=== PATIENT | male | born 1940 | race Caucasian/White ===

== ENCOUNTER 2018-06-28 11:04 | Inpatient (IN) | payer MEDICARE, OTHER ==
[~2018-06-28] VITALS: Ht 170.2 cm; Wt 85.7 kg
[~2018-06-28 11:04] MED LIST: ALPRAZOLAM; ARIXTRA; ASPIR 8181 MG PO; CIPROFLOXACIN500 M1 PO; CLARITIN10 MG PO; ERYTHROMYCIN E3.5 G3 OPHTHALMIC; FISHOIL; FLOMAX0.4 MG PO; IMDUR 30 MG TAB30 M1 PO; LIPITOR10 MG PO; METAMUCIL PAC1 UDPK1 PO; MOM PO; MULTIVITAMINS; NAPROSYN500 MG PO; NITROGLYCERIN0.4 MG SUBLING; NORCO 5-325 TA1 EACH PO; OMEPRAZOLE40 MG PO; PAROXETINE HCL20 MG PO; PAXIL PO; PAXIL10 MG PO; PROSCAR 5MG TABL5 MG PO; ROXICODONE5 M1 PO; TYLENOL EXTRA500 MG PO; ZOFRAN4 MG PO; ZYRTEC PO
[2018-06-28 11:10] VITALS: BP 128/71
[2018-06-28 11:30] LABS: URINE BILIRUBIN NEGATIVE (Negative); URINE BLOOD NEGATIVE (Negative); URINE CLARITY CLEAR; URINE COLOR YELLOW; URINE GLUCOSE-RANDOM NEGATIVE (Negative); URINE KETONES NEGATIVE (Negative); URINE LEUKOCYTES-REFLEX NEGATIVE (Negative); URINE NITRITE-REFLEX NEGATIVE (Negative); URINE PROTEIN NEGATIVE (Negative); URINE UROBILINOGEN 0.2 E.U./dl (0.2-1.0)
[2018-06-28 11:32] LABS: ABSOLUTE EOSINOPHILS 0.1 thou/uL (0.0-0.7); ABSOLUTE LYMPHOCYTES 1.4 thou/uL (0.8-5.3); ABSOLUTE MONOCYTES 0.5 thou/uL (0.0-1.2); ABSOLUTE NEUTROPHILS 3.4 thou/uL (1.6-8.1); BASOPHILS 0.5 %; EOSINOPHILS 2.1 %; HEMATOCRIT 44.9 % (42.0-52.0); HEMOGLOBIN 15.1 gm/dL (14.0-18.0); LYMPHOCYTES 26.1 %; MCH 29.2 pg (26.0-34.0); MCHC 33.7 g/dL (28.0-37.0); MCV 86.6 fL (80.0-100.0); MPV 7.9 fl. (7.2-11.1); NUCLEATED RBCS 0 /100WBC; PLATELET COUNT* 230 thou/uL (150-400); POLYS 62.3 %; RBC 5.18 mil/uL (4.50-6.00); RDW-CV 13.5 % (10.5-14.5); WBC 5.5 thou/uL (4.0-11.0)
[2018-06-28 11:40] LABS: APTT 33.1 Seconds (25.0-31.3); PROTIME 10.2 Seconds (9.20-11.50)
[2018-06-28 11:56] LABS: ALBUMIN 3.7 g/dL (3.4-5.0); ALKALINE PHOSPHATASE 95 U/L (46-116); ANION GAP 2 mmol/L (7-16); BUN 13 mg/dL (7-18); CALCIUM 8.7 mg/dL (8.5-10.1); CHLORIDE 101 mmol/L (98-107); CK-MB MASS 2.3 ng/mL (<0.5-3.6); CO2 33 mmol/L (21-32); CREATININE 0.8 mg/dL (0.6-1.3); GLUCOSE 101 mg/dL (70-99); NT-PRO BRAIN NAT PEPTIDE 126 pg/mL (<300); POTASSIUM 4.2 mmol/L (3.5-5.1); SGOT 24 U/L (15-37); SGPT 13 U/L (30-65); SODIUM 136 mmol/L (136-145); TOTAL BILIRUBIN 0.3 mg/dL (<0.1-1.0); TOTAL PROTEIN 7.4 g/dL (6.4-8.2); TROPONIN-I LEVEL <0.06 ng/mL (<0.06)
[2018-06-28 14:00] VITALS: BP 123/77; BP 132/78
--- NOTE | 2018-06-28 17:03 | EKG ---
[place] [address] ELECTROCARDIOGRAM REPORT Name: DEEPAK EVERETT Room: [address] ADM IN M.R.#: [id number] Admission: 06/28/18 Attend Phys: Jonathan Chau Discharge: Date of : 42 Report #: [id number] THIS REPORT FOR: //name// [facility] ED Test Date: 2018-06-28 Test Time: 11:47:59 Pat Name: DEEPAK EVERETT Department: Room: 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: [place] : 1940 Requested By: Carlitos Salazar Order Number: [id number] MD: Frandy Ramirez Measurements Intervals [place] Rate: 50 P: 22 [place]: 174 QRS: -13 QRSD: 95 T: 0 QT: 419 QTc: 382 Interpretive Statements Sinus bradycardia Abnormal R-wave progression, early transition Borderline ST elevation, lateral leads Baseline wander in lead(s) V1 Compared to ECG 10/18/2016 16:09:59 rate slowed Electronically Signed On 06-28-2018 17:03:06 CDT by Frandy Ramirez [email or web address] <ELECTRONICALLY SIGNED> By: Frandy Ramirez MD, FACC 06/28/18 1703 1147 1147 Frandy Ramirez MD, [facility] /EPI
--- NOTE | 2018-06-28 19:04 | NUR ---
VSS, ASSUMED CARE OF PT FROM ER, ASSESSMENT PERFORMED AND CAHRTED, FALL PRECAUTIONS INPLACE AND CALL LIGHT IN REACH, PT DENIES ANY PAIN AND IS A&O4 AND UP AD HEATHER AND IS TRACING SB ON THE MONITOR, PT GOAL IS TO COMPLETE MRI, WILL FOLLOW WITH PLAN OF CARE AND HOURLY ROUNDS.
[2018-06-28 19:30] VITALS: BP 106/61; BP 121/70
[2018-06-29] VITALS: BP 109/72
--- NOTE | 2018-06-29 03:53 | NUR ---
RECEIVED REPORT AND ASSUMED CARE AT 1900. VSS. CARDIAC MONITORING IN PLACE. PT DENIES ANY COMPLAINTS OF PAIN. ASSESSMENT COMPLETED CHARTED. DISCUSSED PLAN OF CARE WITH PT, VERBALIZED UNDERSTANDING. PT UP AD HEATHER IN ROOM, ON RA. BED LOCKED IN LOWEST POSITION, CALL LIGHT WIHTIN REACH. MEDICATION ADMIN PER EMAR. WILL CONTINUE TO MONITOR
[2018-06-29 04:00] VITALS: BP 121/68
[2018-06-29 06:54] LABS: CHOLESTEROL 171 mg/dL (<200); HDL CHOLESTEROL 70 mg/dL (>40); LDL CHOLESTEROL 85 mg/dL (<100); TC:HDL 2.4 Ratio (Not establshd); TRIGLYCERIDE 81 mg/dL (<150); VLDL 16 mg/dL (<40)
[2018-06-29 06:55] LABS: SERUM ASSESSMENT Clear
[2018-06-29 08:02] VITALS: BP 110/65
--- NOTE | 2018-06-29 09:30 | NUR ---
ASSUMED CARE OF PT THIS AM AROUND 0715- OPHTHALMIC TECHNICIAN IN PLACE ORDERED, TRACING SB- UPON ASSESSMENT PT NOTED TO BE RESTING IN BED, EYES OPENED- PT A&O X4- CONTINENT OF BOWEL AND BLADDER- UP AD-HEATHER IN ROOM, STEADY GAIT NOTED- LCTA, RESP EVEN AND UN-LABORED- VSS, O2 SAT 95% ON RA- ABDOMEN SOFT/ROUND/NON-TENDER, BS X4 QUADS- LAST BM REPORTED 06/28/18- IV NOTED TO LEFT AC INTACT AND SL- GOOD PO INTAKE NOTED THIS AM WITH BREAKFAST-CARDIOLOGY HERE TO ASSESS AND SIGNED OFF THIS AM- PT DENIES ANY C/O PAIN/DISCOMFORT AT THIS TIME- CALL LIGHT AND PERSONAL BELONGINGS WITH IN REACH- HOURLY ROUNDS IN PLACE R/T SAFETY/NEEDS- ALL NEEDS MET AT THIS TIME-WCTM
[2018-06-29 10:13] VITALS: BP 110/65
[2018-06-29 12:14] VITALS: BP 110/60
[2018-06-29] MEDS ORDERED: LAMICTAL 25 MG25 M1 PO (12:46)
--- NOTE | 2018-06-29 14:55 | NUR ---
ORDERS RECIEVED PER FOR OKAY TO D/C IF OKAY WITH NEUROLOGY- NOTIFIED AND STATES THAT HE IS WAITING ON EEG RESULTS AND WILL POSS PRESCIBED LAMICTAL- RESULTS NOTED PER WITH LAMICTAL PRESCRIBED AND GIVEN THIS SHIFT ORDERED- LAMICAL SCRIPR CALLED IN TO PT PHARMACY PRIOR TO D/C- F/U WITH NEUROLOGY COMMUNICATED AND IF MORE SPEELS TO GET EARLIER WITH VERBAL UNDERSTANDING PER PT AND - WRITTEN EDUCATION PROVIDED AT TIME OF D/C- D/C TEACHING/EDUCATION GIVEN TO PT PRIOR TO D/C WITH ALL QUESTIONS AND CONCERNS ADDRESSED PRIOR TO D/C- IV TO LEFT AC D/C'D ALONG WITH HIM ANALYST PRIOR TO D/C- BELONGINGS PACKED AND ACCOUNTED FOR PER PT AND PRIOR TO D/C- PT CURRENLTY IN ROOM GETTING READY FOR D/C- ALL NEEDS MET AT THIS TIME-WCTM
--- NOTE | 2018-06-30 13:12 | CON ---
[address] [address] CONSULTATION Name: DEEPAK EVERETT Room: [address] IN .R.#: [id number] Admission: 06/28/18 Attend Phys: Jonathan Chau Discharge: 06/29/18 Date of : 42 Report #: [id number] THIS REPORT FOR: //name// CC: Lima De La Cruz DO DATE OF SERVICE: 06/28/2018 HISTORY OF PRESENT ILLNESS: The patient is a 77-year-old white male who I was asked to see in the hospital today after he was noted to be bradycardic. The patient has no previous history of heart disease. He does state that for years, he has been told he has a slow heart rate in the 50s. He actually saw my partner, Dr. Ivey back in 12/2016. He had some atypical chest pain at that time. He underwent a cardiac workup that included a stress echocardiogram in 10/2016. At that time, he got a target heart rate of 127. He did have ST segment depression; however, there was no evidence of ischemia on echo. 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 The patient apparently was at work yesterday and apparently became confused. He went home last night and could not recall what he had done during the day. This morning, his called his doctor's office. They were told to come to the Emergency Room for further evaluation and treatment. He apparently did not have any slurred speech or blurred vision. He did have a bruise under his eye, could not recall how he got the bruise. He denied any chest pain, shortness of breath, lightheadedness or syncope. PAST MEDICAL HISTORY: Otherwise significant for cholecystectomy, cataract extraction, prostatism and hyperlipidemia. He has a skin cancer removed, macular degeneration. MEDICATION: His only medication includes hydrocodone for pain. He is no longer on Lipitor nor Proscar. ALLERGIES: He has no drug allergies. FAMILY HISTORY: Negative for heart disease. SOCIAL HISTORY: He is . He and his live in [place]. 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 Quit smoking 10 years ago. Two beers a day. REVIEW OF SYSTEMS: No history of stroke, asthma. He has had a peptic ulcer. No kidney disease. He had a skin cancer removed in the past. No psychiatric illness. PHYSICAL EXAMINATION: GENERAL: Revealed an elderly white male [place] [address] CONSULTATION Name: DEEPAK EVERETT Jonathan Room: [address]#: [id number] Admission: 06/28/18 Attend Phys: Jonathan Chau Discharge: 06/29/18 Date of : 42 Report #: [id number] VITAL SIGNS: Blood pressure is 120/70, pulse 50. He is afebrile. HEENT: He is anicteric. Conjunctivae pink. Mucous members moist. NECK: Veins nondistended. No carotid bruits. Neck supple. CHEST: Clear to auscultation. CARDIAC: Regular, bradycardia. ABDOMEN: Soft. EXTREMITIES: No edema. Posterior tibial pulse 2+ bilaterally. SKIN: Warm, dry. NEUROLOGIC: Nonfocal. ECG shows sinus bradycardia without ST or T-wave change. His workup in the Emergency Room: He had a CT scan of the head today with and without contrast that showed cystic changes that are unchanged, possible congenital, no acute abnormality. Chest x-ray showed normal heart size, clear lung banks. LABORATORY DATA: Sodium 136, creatinine 0.8. Liver function studies were normal. White blood cell count 5.5, hemoglobin 15.1. IMPRESSION AND RECOMMENDATIONS: 1. Sinus bradycardia. I would check thyroid function studies. I would not recommend pacemaker at this time. 2. Confusion. The patient will be evaluated by Neurology. 3. Previous tobacco abuse. <ELECTRONICALLY SIGNED> By: Frandy Ramirez MD, FACC 06/30/18 1312 1609 [id number] Ramirez MD, FACC /nt
--- NOTE | 2018-06-30 19:14 | EEG ---
[address] [address] EEG STUDY REPORT Name: MARGUERITEDEEPAK Jonathan Room: [address] IN M.R.#: [id number] Admission: 06/28/18 Attend Phys: Jonathan Chau Discharge: 06/29/18 Date of : 42 Report #: [id number] THIS REPORT FOR: //name// CC: Lima De La Cruz This patient is having recurrent episodes of amnesia. EEG is being done to evaluate the possibility of seizure. The patient's EEG on the right side demonstrated a background activity of about 10 Hz and 30 microvolt. When the patient is awake, the asymmetry is not very prominent. The patient goes to sleep and the asymmetry becomes prominent and the patient has bilateral slowing. No spike and slow wave activity was noticed on the left side, but EEG does demonstrate what appeared to be unstable activity some time. Photic stimulation is unremarkable. IMPRESSION: This is a severely abnormal EEG because it is asymmetrical. The activity also appeared to be unstable, but no active spike and slow wave activity was noticed. Thank you very much for this referral. <ELECTRONICALLY SIGNED> By: Salas Leahy MD 06/30/18 1914 1548 1614Pcatherine Leahy MD /nt
--- NOTE | 2018-06-30 19:14 | CON ---
[address] [address] CONSULTATION Name: DEEPAK EVERETT Room: [address] IN M.R.#: [id number] Admission: 06/28/18 Attend Phys: Jonathan Chau Discharge: 06/29/18 Date of : 42 Report #: [id number] THIS REPORT FOR: //name// CC: Lima Gonzaleze Emyjadaallan DATE OF SERVICE: 06/28/2018 HISTORY OF PRESENT ILLNESS: This is a 77-year-old male patient who was evaluated by me for an episode, which he had yesterday. He had an episode where he does not remember about 2-3 hours of that time. He was still able to talk. His speech was intact. It came spontaneously without any trauma. It resolved by itself. He had some bruise under his left eye. He does not know how he noticed that. He told me this was his first episode, but the family later on told me that he had similar episode before. He was not classically repeating things like people with transient global amnesia does, now he feels back to his baseline. He does mention that he is having trouble with short-term memory that is going on for a few years and is gradually becoming worse. REVIEW OF SYSTEMS: A 14-point review of system was carried out in this patient. He does drink a couple of alcoholic drinks a day. He does see Dr. Ivey for heart problems. He has a history of rib fracture. He has a history of chest pain. He has a history of conjunctivitis. There is no history of any seizures in this patient. He had a hysterectomy, emphysema, ulcer, GERD, macular degeneration, LASIK surgery, bilateral cataracts, crushed vertebra, enlarged prostate. He is not complaining of any active chest pain, eye symptoms, ENT symptoms, GI, , constitutional, dermatological, hematological, psychiatric, throat, allergic symptom. PAST MEDICAL HISTORY: Negative for any stroke. FAMILY HISTORY: Negative for early age stroke. SOCIAL HISTORY: He drinks 2 or 3 alcoholic drinks a day. It is usually beer. PHYSICAL EXAMINATION: Indicate the patient is alert, responsive, able to follow simple and complex commands. His speech, concentration, fund of knowledge and memory is at his baseline. His memory is diminished. His cranial nerve examination 2-12 looks unremarkable. He has symmetrical strength, sensation, reflexes and tone in all 4 extremities. There is no cerebellar sign. I could not look at the patient's fundus. He is a well-developed individual who does not have any dysmorphic features of eyes, ears and face. His vision and hearing looks adequate. His pulses are palpable. He has no edema, cyanosis or jaundice. Cardiac examination is unremarkable. In fact, [place] [address] CONSULTATION Name: MARGUERITEDEEPAK Jonathan Room: [address]#: [id number] Admission: 06/28/18 Attend Phys: Jonathan Chau Discharge: 06/29/18 Date of : 42 Report #: [id number] Cardiology. Scattered rhonchi is present on both sides, but no respiratory difficulty is present. Blood pressure is 132/78, respirations 16, pulse is 52, temperature is 98.1. LABORATORY DATA: His white count is 5.5 and his creatinine is 8.8. He did have a CT scan of the head and he is going for an MRI of the brain. IMPRESSION: The patient's history is suggestive, but not typical for transient global amnesia. He also may have some minimal cognitive impairment or early dementia. He does drink some alcohol and that may complicate the situation, although he drinks only in moderation. RECOMMENDATIONS: 1. MRI. 2. MRA. 3. Carotid Doppler. 4. TSH, vitamin B12. 5. Thiamine. 6. Await the results of this testing and then decide about the further management. Thank you very much for this referral. If you have any question, please feel free to contact me. <ELECTRONICALLY SIGNED> By: Salas Leahy MD 06/30/18 1914 1618 0445Salas Leahy MD /nt
== END 2018-06-29 15:09 | disposition home or self-care (01) | DRG 71 ==
LOC: M.ERS 11:04 → M.2W 12:06 → M.TBA-ER 12:06 → M.2W 14:11
PROVIDERS: Family Medicine; Internal Medicine Cardiovascular Disease; ADMIT Internal Medicine
DX: G45.4 Transient global amnesia (principal); G93.49 Other encephalopathy; R00.1 Bradycardia, unspecified; K21.9 Gastro-esophageal reflux disease without esophagitis; E78.5 Hyperlipidemia, unspecified; H35.30 Unspecified macular degeneration; J43.9 Emphysema, unspecified; Z98.42 Cataract extraction status, left eye; Z98.41 Cataract extraction status, right eye; Z90.49 Acquired absence of other specified parts of digestive tract; Z98.52 Vasectomy status; Z91.048 Other nonmedicinal substance allergy status; Z87.891 Personal history of nicotine dependence; Z79.82 Long term (current) use of aspirin; Z79.899 Other long term (current) drug therapy

== ENCOUNTER 2020-08-22 18:01 | Emergency (ER) | payer MEDICARE, OTHER ==
[~2020-08-22] VITALS: Ht 170.2 cm; Wt 90.7 kg
[~2020-08-22 18:01] MED LIST changes: +FLEXERIL PO; +LAMICTAL 25 MG25 M1 PO; +MEDROLDOSEPACK PO; +TRAMADOL 50 MG50 MG PO; +TUMERIC; +VENTOLIN HFA 1818 GM INH; +VITAMIN D1000 UNI1 PO; +ZOFRAN ODT4 MG PO; +ZYRTEC10 M5 PO
[2020-08-22 19:55] LABS: ABSOLUTE EOSINOPHILS 0.1 thou/uL (0.0-0.7); ABSOLUTE LYMPHOCYTES 1.6 thou/uL (0.8-5.3); ABSOLUTE MONOCYTES 0.7 thou/uL (0.0-1.2); ABSOLUTE NEUTROPHILS 4.9 thou/uL (1.6-8.1); BASOPHILS 0.5 %; EOSINOPHILS 1.5 %; HEMATOCRIT 41.1 % (42.0-52.0); HEMOGLOBIN 13.9 gm/dL (14.0-18.0); LYMPHOCYTES 21.6 %; MCH 28.9 pg (26.0-34.0); MCHC 33.8 g/dL (28.0-37.0); MCV 85.3 fL (80.0-100.0); MONOCYTES 9.7 %; MPV 7.9 fl. (7.2-11.1); NUCLEATED RBCS 0 /100WBC; PLATELET COUNT* 207 thou/uL (150-400); POLYS 66.7 %; RBC 4.81 mil/uL (4.50-6.00); WBC 7.4 thou/uL (4.0-11.0)
[2020-08-22 20:02] LABS: CALCIUM 8.2 mg/dL (8.5-10.1); POTASSIUM 3.9 mmol/L (3.5-5.1)
[2020-08-22 20:04] LABS: PROTIME 10.8 Seconds (9.20-11.50)
[2020-08-22 20:07] LABS: ALBUMIN 3.6 g/dL (3.4-5.0); TOTAL BILIRUBIN 0.5 mg/dL (<0.1-1.0); TOTAL PROTEIN 6.8 g/dL (6.4-8.2)
[2020-08-22] MEDS ORDERED: HYDROCODON-ACE1 EAC7 PO (21:12)
[2020-08-22 21:26] VITALS: BP 180/78
--- NOTE | 2020-08-23 09:07 | EKG ---
[place] [address] ELECTROCARDIOGRAM REPORT Name: DEEPAK EVERETT Room: [facility]#: [id number] Admission: 08/22/20 Attend Phys: Discharge: 08/22/20 Date of : 42 Date of Service: 08/22/201948 Report #: [id number] THIS REPORT FOR: //name// 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1940 Requested By: Toyin Guo Order Number: [id number] MD: Frandy Ramirez Measurements Intervals [place] Rate: 51 P: 25 [place]: 175 QRS: -16 QRSD: 99 T: -3 QT: 391 QTc: 361 Interpretive Statements Sinus bradycardia Borderline left axis deviation Abnormal R-wave progression, early transition Borderline T abnormalities, inferior leads Compared to ECG 10/23/2018 19:05:13 No significant changes Electronically Signed On 08-23-2020 9:07:22 WIRE COILER MACHINE OPERATOR by Frandy Ramirez [email or web address] <ELECTRONICALLY SIGNED> By: Frandy Ramirez MD, FACC 08/23/2007 48 48 Frandy Ramirez MD, [facility] /EPI
== END 2020-08-22 21:27 | disposition home or self-care (01) ==
LOC: M.ERS 18:01
PROVIDERS: Emergency Medicine
DX: S22.000A Wedge compression fracture of unspecified thoracic vertebra, initial encounter for closed fracture (principal); K21.9 Gastro-esophageal reflux disease without esophagitis; M25.552 Pain in left hip; R10.32 Left lower quadrant pain; Z96.652 Presence of left artificial knee joint; Z88.8 Allergy status to other drugs, medicaments and biological substances; Z90.49 Acquired absence of other specified parts of digestive tract; W01.0XXA Fall on same level from slipping, tripping and stumbling without subsequent striking against object, initial encounter; Y93.89 Activity, other specified; Y92.89 Other specified places as the place of occurrence of the external cause; Y99.8 Other external cause status

== ENCOUNTER 2020-12-11 20:03 | Inpatient (IN) | payer OTHER ==
[~2020-12-11] VITALS: Ht 170.2 cm; Wt 89.4 kg
--- NOTE | ~2020-12-11 | OP ---
[facility] [address] [place] [address] OPERATIVE REPORT Name: DEEPAK EVERETT Room: [place] [address] ADM IN M.R.#: [id number] Admission: 12/11/20 Attend Phys: Esther Esquivel MD Discharge: Date of : 42 Report #: [id number] THIS REPORT FOR: cc: Marbin De La Cruz Steve T. DO Patterson,Elton Harding MD ~ DATE OF SERVICE: 12/12/2020 PREOPERATIVE DIAGNOSIS: Acute appendicitis. POSTOPERATIVE DIAGNOSIS: Acute appendicitis. OPERATION: Laparoscopic appendectomy. SURGEON: Elton Holliday MD ANESTHESIA: General. ESTIMATED BLOOD LOSS: Minimal. SPECIMEN: Appendix. DESCRIPTION OF PROCEDURE: After informed consent was obtained, the patient was brought to the operating room and placed supine. SCDs were placed and working, preoperative antibiotics were administered, general anesthesia was induced. The abdomen was prepped and draped in the usual sterile fashion. A 5 mm incision was made in the left upper quadrant. A 5 mm trocar was placed under direct vision. Pneumoperitoneum was established. A left lower quadrant, 5 mm trocar was placed. A right upper quadrant, 10 mm trocar was placed. The patient was placed with the left side slightly tilted down. The appendix was grasped and retracted anteriorly. A window was made in the mesoappendix. The mesoappendix was ligated with a LigaSure device. The base of the appendix was then stapled off with a GARY blue load stapler. The appendix was removed with an Endopouch. The fascia was then closed with a elbbln-jv-lclnb 0 Vicryl. Skin was closed with 4-0 Monocryl. Incisions were dressed with Steri-Strips. COMPLICATIONS: None. DISPOSITION: The patient was taken to recovery in satisfactory condition. By: 1725 1948Jodestiny Holliday MD /renetta
[~2020-12-11 20:03] MED LIST changes: +HYDROCODON-ACE1 EAC7 PO
[2020-12-11 20:08] VITALS: BP 156/65
[2020-12-11 20:52] LABS: HEMATOCRIT 44.5 % (42.0-52.0); HEMOGLOBIN 14.7 gm/dL (14.0-18.0); MCH 27.9 pg (26.0-34.0); MCV 84.7 fL (80.0-100.0); MPV 8.8 fl. (7.2-11.1); NUCLEATED RBCS 0 /100WBC; PLATELET COUNT* 199 thou/uL (150-400); RBC 5.26 mil/uL (4.50-6.00); RDW-CV 13.4 % (10.5-14.5); WBC 13.2 thou/uL (4.0-11.0)
[2020-12-11 20:57] LABS: CALCIUM 8.6 mg/dL (8.5-10.1); CREATININE 0.8 mg/dL (0.6-1.3); POTASSIUM 3.8 mmol/L (3.5-5.1)
[2020-12-11 21:06] LABS: ALBUMIN 3.9 g/dL (3.4-5.0); TOTAL BILIRUBIN 0.8 mg/dL (<0.1-1.0); TOTAL PROTEIN 7.7 g/dL (6.4-8.2)
[2020-12-11 21:39] LABS: ABSOLUTE LYMPHOCYTES 0.9 thou/uL (0.8-5.3); ABSOLUTE MONOCYTES 0.7 thou/uL (0.0-1.2); ABSOLUTE NEUTROPHILS 11.6 thou/uL (1.6-8.1)
[2020-12-11 21:40] LABS: LARGE PLATELETS OCCASIONAL; PLATELET ESTIMATE ADEQUATE
[2020-12-11 23:19] VITALS: BP 143/69
[2020-12-11 23:37] LABS: URINE BILIRUBIN NEGATIVE (Negative); URINE BLOOD NEGATIVE (Negative); URINE CLARITY CLEAR; URINE COLOR YELLOW; URINE GLUCOSE-RANDOM NEGATIVE (Negative); URINE KETONES 2+ (Negative); URINE LEUKOCYTES-REFLEX NEGATIVE (Negative); URINE NITRITE-REFLEX NEGATIVE (Negative); URINE PROTEIN NEGATIVE (Negative); URINE SPECIFIC GRAVITY <= 1.005 (1.005-1.030); URINE UROBILINOGEN 0.2 E.U./dl (0.2-1.0)
[2020-12-11 23:38] VITALS: BP 127/71
[2020-12-12 04:00] VITALS: BP 103/60
[2020-12-12 09:22] VITALS: BP 112/59
[2020-12-12 12:00] VITALS: BP 113/62
--- NOTE | 2020-12-12 12:31 | EKG ---
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[place] : 1940 Requested By: Esther Esquivel Order Number: [id number] Reading MD: Frandy Ramirez Measurements Intervals [place] Rate: 54 P: 30 [place]: 170 QRS: -9 QRSD: 100 T: -4 QT: 412 QTc: 391 Interpretive Statements Sinus bradycardia Abnormal R-wave progression, early transition Baseline wander in lead(s) II,III,aVF Compared to ECG 08/22/2020 19:49:02 no change Electronically Signed On 12-12-2020 12:31:25 CDT by Frandy Ramirez [email or web address] <ELECTRONICALLY SIGNED> By: Frandy Ramirez MD, FACC 12/12/20 1231 07 07 Frandy Ramirez MD, FAC /EPI
[2020-12-12 19:50] VITALS: BP 121/72
[2020-12-12 23:55] VITALS: BP 114/61
[2020-12-13 04:17] VITALS: BP 127/65
[2020-12-13 04:27] LABS: ABSOLUTE LYMPHOCYTES 0.6 thou/uL (0.8-5.3); ABSOLUTE MONOCYTES 0.8 thou/uL (0.0-1.2); ABSOLUTE NEUTROPHILS 10.5 thou/uL (1.6-8.1); BASOPHILS 0.1 %; HEMATOCRIT 37.3 % (42.0-52.0); LYMPHOCYTES 5.4 %; MCHC 32.8 g/dL (28.0-37.0); MCV 85.3 fL (80.0-100.0); MONOCYTES 6.7 %; MPV 8.5 fl. (7.2-11.1); NUCLEATED RBCS 0 /100WBC; PLATELET COUNT* 180 thou/uL (150-400); POLYS 87.8 %; RBC 4.37 mil/uL (4.50-6.00); RDW-CV 13.4 % (10.5-14.5); WBC 11.9 thou/uL (4.0-11.0)
[2020-12-13 04:45] LABS: ALBUMIN 2.9 g/dL (3.4-5.0); CALCIUM 8.2 mg/dL (8.5-10.1); MAGNESIUM 2.1 mg/dL (1.8-2.4); PHOSPHORUS* 2.8 mg/dL (2.5-4.9); POTASSIUM 3.9 mmol/L (3.5-5.1); TOTAL BILIRUBIN 1.3 mg/dL (<0.1-1.0); TOTAL PROTEIN 6.5 g/dL (6.4-8.2)
[2020-12-13 04:58] LABS: HEMOGLOBIN 12.2 gm/dL (14.0-18.0)
[2020-12-13 08:00] VITALS: BP 113/60
[2020-12-13] MEDS ORDERED: FLOMAX0.4 MG PO (10:22)
[2020-12-13 11:20] VITALS: BP 113/60
--- NOTE | 2020-12-16 15:07 | PATH ---
[address] [address] PATHOLOGY RPT PROCEDURE Name: DEEPAK EVERETT Room: [address] IN .R.#: [id number] Admission: 12/11/20 Date of : 42 Discharge: 12/13/20 Report #: [id number] Path Case #: [id number] [facility] Accession Number: [id number] . 01 Material submitted: . appendix - APPENDIX . 01 Clinical history: . LAPAROSCOPIC APPENDECTOMY . 02 Diagnosis: Appendix: - Acute, gangrenous appendicitis, periappendicitis and serositis with evidence of perforation. . (JENNA:mml; 12/16/2020) QLM 12/16/2020 1111 Local . 02 Electronically signed: . Raghavendra Keller MD, Pathologist NPI- [id number] . 01 Gross description: . Fixative: Formalin Labeled: Appendix Appendix length: 6.9 cm Appendix diameter: 1.1 cm Mesoappendix: 4.4 x 1.7 x 1.1 cm Proximal margin: Stapled Serosa: Roughened, barrera-pink with purulent exudate Cut surface: Barrera-white with fecal matter within the lumen Luminal diameter: 0.7 cm Perforation: Yes measuring 0.9 x 0.7 cm completely the appendiceal tip and measures 4.6 cm from the surgical resection margin. Lesions/abnormalities: Described above A1 Distal tip, bisected with perforation located opposite of tip A2 Proximal margin (inked black) and Mid appendix ([facility]; 12/14/2020) GZA/GZA 12/14/2020 0922 Local . 02 Pathologist provided ICD-10: K35.80 . 02 CPT . 892203 Specimen Comment: A courtesy copy of this report has been sent to [phone] Specimen Comment: Report sent to Performed at: [address] [place] [address] PATHOLOGY RPT PROCEDURE Name: EVERETTDEEPAK Room: [address]#: [id number] Admission: 12/11/20 Date of : 42 Discharge: 12/13/20 Report #: [id number] Path Case #: [id number] [address] [facility] [address], [place], [place] [id number] MD Tacho Sherman MD Phone: [phone] Performed at: [address] [place] [address] [address], [place], [place] [id number] MD Raghavendra Keller MD Phone: [phone]
== END 2020-12-13 11:46 | disposition home or self-care (01) | DRG 854 ==
LOC: M.ERS 20:03 → M.2W 23:02 → M.TBA-ER 23:02 → M.2W 23:11
PROVIDERS: Internal Medicine; Personal Emergency Response Attendant; ADMIT Internal Medicine; ATTEND Internal Medicine
PROC: 0DTJ4ZZ Resection of Appendix, Percutaneous Endoscopic Approach (ICD-10-PCS; principal; 2020-12-12)
DX: A41.9 Sepsis, unspecified organism (principal); K35.80 Unspecified acute appendicitis; K21.9 Gastro-esophageal reflux disease without esophagitis; K52.9 Noninfective gastroenteritis and colitis, unspecified; J44.9 Chronic obstructive pulmonary disease, unspecified; R09.02 Hypoxemia; R33.9 Retention of urine, unspecified; Z20.822 Contact with and (suspected) exposure to COVID-19; Z96.652 Presence of left artificial knee joint; Z79.82 Long term (current) use of aspirin; Z82.49 Family history of ischemic heart disease and other diseases of the circulatory system; Z79.899 Other long term (current) drug therapy; Z91.09 Other allergy status, other than to drugs and biological substances; Z90.49 Acquired absence of other specified parts of digestive tract; Z87.891 Personal history of nicotine dependence; Z72.89 Other problems related to lifestyle